=== PATIENT | male | born 1965 | race Caucasian/White ===

== ENCOUNTER 2023-02-07 13:18 | Emergency (ER) | payer SELFPAY ==
[2023-02-07 13:42] VITALS: BP 161/103; PULSE 112
== END 2023-02-07 15:00 | disposition other institution (70) ==
LOC: JP.ED 13:18
DX: F10.10 Alcohol abuse, uncomplicated (principal); I25.2 Old myocardial infarction; Y90.8 Blood alcohol level of 240 mg/100 ml or more; Z20.822 Contact with and (suspected) exposure to COVID-19
CPT/HCPCS: 36415; 80305-QW; 80307; 99283; U0002